=== PATIENT | female | born 1945 | race Caucasian/White ===

== ENCOUNTER 2016-11-16 19:59 | Emergency (ER) | payer MEDICARE, MEDICAID ==
[~2016-11-16] VITALS: Ht 165.1 cm; Wt 99.8 kg
[~2016-11-16 19:59] MED LIST: BENA40TA2 PO; CARV25TA2 PO; CYCL30DR OP; FENO134C PO; INSU100V7 SQ; LEVO150T PO; MECL-118 PO; OMEP20CA10 PO; SOLI5TAB PO
--- NOTE | 2016-11-16 20:07 | NUR ---
PT BB FAMILY; PT AMBULATORY TO ER BED 6 C/O ABD PAIN X 1 DAY. PT AOX4 NEPALI SPEAKING, DAUGHTER AT BEDSIDE TO TRANSLATE. RR EVEN AND UNLABORED. NO SOB NOTED. NAD NOTED. NO NVD AT THIS TIME. PT GOWNED AND PLACED ON MONITOR WAITING FOR MD SHUKLA.
--- NOTE | 2016-11-16 20:14 | NUR ---
PAC PRUSHA AT BEDSIDE FOR EVAL.
[2016-11-16] MEDS ORDERED: MORPHINE SULFATE INJ 4 MG/ML DISP.SYRIN ONE ×2 (20:26→22:05)
[2016-11-16] MEDS ORDERED: FAMOTIDINE/PF INJ 20 MG/2 ML VIAL IV ONE ×2 (20:26→20:30)
[2016-11-16] MEDS ORDERED: ONDANSETRON HCL/PF 4 MG/2 ML VIAL ONE (20:26)
--- NOTE | 2016-11-16 20:26 | NUR ---
IV STARTED ON LEFT AC 18G. LABS DRAWN AND SENT TO LAB
[2016-11-16] MEDS ORDERED: MORPHINE SULFATE INJ 2 MG/ML DISP.SYRIN IV ONE ×2 (20:30→22:30)
[2016-11-16] MEDS ORDERED: ONDANSETRON HCL/PF 4 MG/2 ML VIAL IVP ONE (20:30)
[2016-11-16 20:44] LABS: CALCIUM, SERUM 8.8 mg/dL (8.5-10.1); POTASSIUM 4.4 mmol/L (3.5-5.1)
[2016-11-16] MEDS ORDERED: IOHEXOL-300 100 ML VIAL IV ONE (20:46)
[2016-11-16] MEDS ORDERED: IV NS 0.9% 250 ML IV ONE (20:46)
[2016-11-16 20:49] LABS: ALBUMIN 3.8 g/dL (3.4-5.0); BILIRUBIN,DIRECT 0.3 mg/dL (0.0-0.2); BILIRUBIN,TOTAL 1.2 mg/dL (0.2-1.0); TOTAL PROTEIN, SERUM 7.2 g/dL (6.4-8.2)
--- NOTE | 2016-11-16 20:55 | NUR ---
PT TO CT VIA W/C
--- NOTE | 2016-11-16 21:06 | NUR ---
PT RETURNED FROM CT.
[2016-11-16 21:12] LABS: BASOPHILS % (AUTO) 0.3 % (0.0-2.0); EOSINOPHILS # (AUTO) 0.1 /CMM (0.0-0.7); EOSINOPHILS % (AUTO) 0.8 % (0.0-6.0); HEMATOCRIT 38 % (33-45); HEMOGLOBIN 12.5 g/dL (11.5-14.8); LYMPHOCYTES # (AUTO) 0.9 /CMM (0.8-4.8); LYMPHOCYTES % (AUTO) 13.8 % (20.0-44.0); MEAN CORPUSCULAR HEMOGLOBIN 28 PG (26.0-33.0); MEAN CORPUSCULAR HGB CONC 33 g/dl (31.0-36.0); MEAN CORPUSCULAR VOLUME 85 fL (82-100); MONOCYTES # (AUTO) 0.5 /CMM (0.1-1.30); MONOCYTES % (AUTO) 7.5 % (2.0-12.0); NEUTROPHILS # (AUTO) 5.2 /CMM (1.8-8.9); NEUTROPHILS % (AUTO) 77.6 % (43.0-81.0); PLATELET COUNT (AUTO) 117 /CMM (150-450); RDW COEFFICIENT OF VARIATION 13.2 (11.5-15.0); WHITE BLOOD COUNT (AUTO) 6.7 K/uL (4.3-11.0)
--- NOTE | 2016-11-16 21:41 | NUR ---
URINE COLLECTED. SENT TO LAB
[2016-11-16 22:01] LABS: APPEARANCE,URINE CLEAR (CLEAR); BILIRUBIN,URINE NEGATIVE (NEGATIVE); BLOOD, URINE NEGATIVE Ery/uL (NEGATIVE); COLOR,URINE YELLOW (YELLOW); KETONES,URINE NEGATIVE (NEGATIVE); LEUKOCYTE ESTERASE ,URINE NEGATIVE (NEGATIVE); NITRITE, URINE NEGATIVE (NEGATIVE); PROTEIN,URINE NEGATIVE (NEGATIVE); UGLUCOSE NEGATIVE (NEGATIVE); UROBILINOGEN,URINE 0.2 EU/dL (0.2)
--- NOTE | 2016-11-16 22:13 | NUR ---
VERBAL ORDERS PER PAC PRUSHA TO GIVE PT MORPHINE 4MG IVP ONE TIME NOW. PT MEDICATED ORDERED.
--- NOTE | 2016-11-16 23:12 | NUR ---
CALLED RADIOLOGY FOR CT RESULT F/U.
[2016-11-17 00:46] LABS: INR 0.95 (0.87-1.13); PROTHROMBIN TIME 10.1 SECS (9.5-12.7)
--- NOTE | 2016-11-17 00:58 | NUR ---
DR. RAZO AT BEDSIDE SPEAKING TO PT AND FAMILY REGARDING RESULTS
--- NOTE | 2016-11-17 01:00 | NUR ---
IV removed. Catheter intact and site benign. Pressure and 4x4 applied to site. No bleeding noted. Patient discharged to home in stable condition. Written and verbal after care instructions given. Patient verbalizes understanding of instruction. ambulatory with a steady gait. instructed not to drive. pt verbalize understanding. pt accompanied by daughter.
[2016-11-17 01:02] VITALS: BP 122/88
== END 2016-11-17 01:13 | disposition home or self-care (01) ==
LOC: ER 19:59
DX: R10.84 Generalized abdominal pain (principal); K21.9 Gastro-esophageal reflux disease without esophagitis; I10 Essential (primary) hypertension; E11.9 Type 2 diabetes mellitus without complications; M19.90 Unspecified osteoarthritis, unspecified site; F41.9 Anxiety disorder, unspecified; E78.00 Pure hypercholesterolemia, unspecified; Z79.4 Long term (current) use of insulin
CPT/HCPCS: 36415; 74160; 80048; 80076; 81001; 83690; 85025; 85610; 93005; 96374; 96375; 96376; 99285; A4606; J2270 ×2; J2405; J3490; J7050; Q9967; 81000-TC; Z7610

== ENCOUNTER 2017-01-22 19:36 | Emergency (ER) | payer MEDICARE, MEDICAID ==
[~2017-01-22] VITALS: Ht 167.6 cm; Wt 72.6 kg
[2017-01-22 19:40] VITALS: BP 143/80
--- NOTE | 2017-01-22 20:34 | NUR ---
LEFT BEFORE DISCHARGE BY THE PROVIDER
== END 2017-01-22 20:35 | disposition left against medical advice (07) ==
LOC: ER 19:37
DX: L98.8 Other specified disorders of the skin and subcutaneous tissue (principal); E11.9 Type 2 diabetes mellitus without complications; E78.00 Pure hypercholesterolemia, unspecified; I10 Essential (primary) hypertension; K21.9 Gastro-esophageal reflux disease without esophagitis; Z79.4 Long term (current) use of insulin
CPT/HCPCS: 99281; A4606; Z7502; Z7610

== ENCOUNTER 2017-08-31 15:03 | Inpatient (IN) | payer MEDICARE, MEDICAID ==
[~2017-08-31] VITALS: Ht 162.6 cm; Wt 91.6 kg
[~2017-08-31 15:03] MED LIST changes: -BENA40TA2 PO; +BENA40TA8 PO; -SOLI5TAB PO; +SOLI5TAB2 PO
--- NOTE | 2017-08-31 15:20 | NUR ---
PT CAME IN WITH C/O ABDOMINAL PAIN X 3 DAYS, NAUSEA. SEEN BY MD FOR EVAL. VSS. SAFETY AND COMFORT MEASURES PROBVIDED. WILL MONITOR.
[2017-08-31] MEDS ORDERED: IV NS 0.9% 1,000 ML BAG IV ONE (16:00)
[2017-08-31] MEDS ORDERED: MORPHINE SULFATE INJ 2 MG/ML DISP.SYRIN IV ONE (16:00)
[2017-08-31] MEDS ORDERED: MORPHINE SULFATE INJ 4 MG/ML DISP.SYRIN ONE (16:07)
[2017-08-31 16:10] LABS: APPEARANCE,URINE Clear (CLEAR); BASOPHILS # (AUTO) 0.3 /CMM (0.0-0.2); BASOPHILS % (AUTO) 3.4 % (0.0-2.0); BILIRUBIN,URINE Negative (NEGATIVE); BLOOD, URINE Trace-intact Ery/uL (NEGATIVE); COLOR,URINE Yellow (YELLOW); EOSINOPHILS % (AUTO) 0.6 % (0.0-6.0); HEMATOCRIT 44 % (33-45); HEMOGLOBIN 15.2 g/dL (11.5-14.8); KETONES,URINE Negative (NEGATIVE); LEUKOCYTE ESTERASE ,URINE Negative (NEGATIVE); LYMPHOCYTES # (AUTO) 1.7 /CMM (0.8-4.8); LYMPHOCYTES % (AUTO) 17.1 % (20.0-44.0); MEAN CORPUSCULAR HGB CONC 34 g/dl (31.0-36.0); MEAN CORPUSCULAR VOLUME 86 fL (82-100); MONOCYTES % (AUTO) 9.8 % (2.0-12.0); NEUTROPHILS # (AUTO) 6.9 /CMM (1.8-8.9); NEUTROPHILS % (AUTO) 69.1 % (43.0-81.0); NITRITE, URINE Negative (NEGATIVE); PH,URINE 5.5 (5.0-8.0); PLATELET COUNT (AUTO) 128 /CMM (150-450); PROTEIN,URINE Negative (NEGATIVE); RDW COEFFICIENT OF VARIATION 14.3 (11.5-15.0); RED BLOOD CELL COUNT(AUTO) 5.17 MIL/uL (4.0-5.2); UGLUCOSE Negative (NEGATIVE)
[2017-08-31 16:18] LABS: CALCIUM, SERUM 8.9 mg/dL (8.5-10.1); CARBON DIOXIDE 25 mmol/L (21-32); CHLORIDE 99 mmol/L (98-107); CREATININE 1.2 mg/dL (0.6-1.3); GLUCOSE 246 mg/dL (74-106); POTASSIUM 4.2 mmol/L (3.5-5.1); SODIUM SERUM 132 mmol/L (136-145); UREA NITROGEN, BLOOD 20 mg/dL (7-18)
[2017-08-31] MEDS ORDERED: ONDANSETRON HCL/PF 4 MG/2 ML VIAL ONE ×2 (16:20→18:04)
--- NOTE | 2017-08-31 16:20 | NUR ---
PT NOTED VOMITING- MD AWARE. ORDERS CARRIED OUT. MEDICATED ORDERED.
[2017-08-31] MEDS ORDERED: IV NS 0.9% 250 ML IV ONE (16:24)
[2017-08-31] MEDS ORDERED: IOHEXOL-300 100 ML VIAL IV ONE (16:24)
[2017-08-31 16:25] LABS: BACTERIA,URINE None seen /HPF (None Seen); RBC,URINE 0-2 /HPF (0-2); SQUAMOUS EPITHELIAL CELL,UR Moderate /HPF (None Seen); WBC,URINE 0-2 /HPF (0-3)
[2017-08-31 16:26] LABS: TROPONIN I < 0.017 ng/mL (0.00-0.056)
[2017-08-31] MEDS ORDERED: ONDANSETRON HCL/PF - ER 4 MG/2 ML VIAL IV ONE ×2 (16:30→18:00)
--- NOTE | 2017-08-31 16:30 | NUR ---
PT TAKEN TO CT.
[2017-08-31 16:31] LABS: ALANINE AMINOTRANSFERASE 100 U/L (12-78); ALBUMIN 3.2 g/dL (3.4-5.0); ALKALINE PHOSPHATASE 38 U/L (46-116); ASPARTATE AMINOTRANSFERASE 71 U/L (15-37); BILIRUBIN,TOTAL 2.5 mg/dL (0.2-1.0); LIPASE 103 U/L (73-393); TOTAL PROTEIN, SERUM 7.5 g/dL (6.4-8.2)
--- NOTE | 2017-08-31 18:53 | NUR ---
DR CASTRO ON THE PHONE WITH DR WYLIE
[2017-08-31] MEDS ORDERED: ASPIRIN 325 MG TABLET PO ONE (19:00)
[2017-08-31] MEDS ORDERED: ASPIRIN EC 325 MG TABLET.DR PO ONE (19:03)
[2017-08-31] MEDS ORDERED: CARV12.5 PO (19:25)
[2017-08-31] MEDS ORDERED: OLME1TAB16 PO (19:25)
[2017-08-31] MEDS ORDERED: SITA1TAB6 PO (19:25)
[2017-08-31] MEDS ORDERED: FERR325T24 PO (19:25)
[2017-08-31] MEDS ORDERED: GLIM4TAB2 PO (19:25)
--- NOTE | 2017-08-31 19:50 | NUR ---
PATIENT ASSIGNED TO TELE 308-[address] WYLIE
--- NOTE | 2017-08-31 19:57 | NUR ---
REPORT GIVEN TO VIVIEN RIVERS FOR SAL.
--- NOTE | 2017-08-31 20:12 | NUR ---
TRANSFERRED PATIENT TO TELE FLOOR VIA ALS PROTOCOL, FAMILY AND RN VIVIEN AT BEDSIDE. NO FURTHER COMPLAINTS.
[2017-08-31 20:15] VITALS: BP 102/61
--- NOTE | 2017-08-31 20:30 | NUR ---
ADMITTED A 72Y/O F, [place], [place], [place] CITIZEN SPEAKING WITHIN FAMILY AT THE BED SIDE. BREATHING EVENLY. NO SOB. NAD . STILL W. EPISODES OF N/V AND C/O ABD PAIN. ALL MEDICAL INFORMATION WAS OBTAINED FROM THE PT AND THE FAMILY. VSS. AFEBRILE. ASSISTED PT TO THE BATHROOM. NEEDS ATTENDED . BED LOW LOCKED .CALL LIGHT WITHIN REACH. WILL CONT TO MONITOR AND WILL INFORM DR. WYLIE RE, ADMISSION ORDERS.
[2017-08-31] MEDS ORDERED: DEXTROSE 50%-WATER 50 ML DISP.SYRIN IV PRN (21:30)
[2017-08-31] MEDS ORDERED: HYDROCHLOROTHIAZIDE XX ONE (21:30)
[2017-08-31] MEDS ORDERED: NITROGLYCERIN 0.4 MG/TAB BOTTLE SL PRN (21:30)
[2017-08-31] MEDS ORDERED: MORPHINE SULFATE INJ 2 MG/ML DISP.SYRIN IV PRN (21:30)
[2017-08-31] MEDS ORDERED: OLMESARTAN XX ONE (21:30)
[2017-08-31] MEDS ORDERED: ACETAMINOPHEN 325 MG TABLET PO PRN (21:30)
[2017-08-31] MEDS ORDERED: MISCELLANEOUS MED 1 EA EA XX ONE (21:30)
[2017-08-31] MEDS ORDERED: ONDANSETRON HCL/PF 4 MG/2 ML VIAL IV PRN (21:30)
--- NOTE | 2017-08-31 21:30 | NUR ---
CALLED DR. WYLIE AND OBTAINED ADMISSION ORDERS. HOME MEDS WERE REVIEWED WITH THE DR. Asia WYNN.
[2017-08-31] MEDS: ATORVASTATIN 10 MG TABLET PO SCH (22:08)
[2017-08-31] MEDS: BLOOD SUGAR DIAGNOSTIC 1 EACH STRIP IN SCH (22:08)
[2017-08-31] MEDS: ENOXAPARIN SODIUM 40 MG/0.4 ML DISP.SYRIN SQ SCH (22:09)
[2017-08-31] MEDS: PANTOPRAZOLE 40 MG VIAL IV SCH (22:10)
[2017-08-31] MEDS: INSULIN REGULAR, HUMAN 100 UNIT/ML 3 ML VIAL SQ PRN (22:12)
[2017-08-31] MEDS ORDERED: INSULIN REGULAR, HUMAN 100 UNIT/ML 3 ML VIAL ONE (22:22)
[2017-09-01] VITALS (7 sets, daily range): BP systolic 96–142; BP diastolic 56–77
--- NOTE | 2017-09-01 06:49 | NUR ---
RN NOTE; PT IN BED AWAKE AND ALERT. BREATHING EVENLY. NO SOB.NAD. SR ON HEART MONITOR , REMAINED STABLE W/ NO ACUTE EVENT DURING THE NIGHT, NO C/O PAIN OR DISCOMFORT. NO N/V. WITH 4 EPISODES OF DIARRHEA DURING THE NIGHT. PT WAS INSTRUCTED RE STOOL SAMPLE COLLECTION. NEEDS ATTENDED . BED LOW LOCKED. CALL LIGHT WITHIN REACH . WILL CONT TO MONITOR AND WILL ENDORSE TO AM SHIFT FOR SAL.
[2017-09-01] MEDS: BLOOD SUGAR DIAGNOSTIC 1 EACH STRIP IN SCH ×4 (06:57→21:45)
--- NOTE | 2017-09-01 07:05 | NUR ---
REPORT RECEIVED AT THE BEDSIDE. PATIENT IS RESTING COMFORTABLY IN BED. NO SOB OR DISTRESS NOTED AT THIS TIME. PATIENT DENIES PAIN AT THIS TIME. HEART RATE SR IN THE 70'S. PT NPO FOR NOW. BED IN A LOW POSITION, CALL LIGHT WITHIN PATIENT REACH. WILL CONTINUE TO MONITOR.
--- NOTE | 2017-09-01 07:33 | NUR ---
placed a call to Dr. Peguero for cardio consult. Dr. Ralph is covering him. also left a message for Dr. Villagomez. for GI consult. Candie, day shift RN made aware.
[2017-09-01] MEDS: LINAGLIPTIN 5 MG TABLET PO SCH ×2 (08:25→08:28)
[2017-09-01] MEDS: METFORMIN 500 MG TABLET PO SCH ×2 (08:25→08:28)
[2017-09-01] MEDS ORDERED: CARVEDILOL 6.25 MG TABLET PO SCH (09:00)
--- NOTE | 2017-09-01 11:48 | NUR ---
DR GRANT ON FLOOR. ASKS TO ORDER FLAGYL 500MG IV Q8H. STATES PT HAD HPYLORI TWO WEEKS AGO AND WAS TREATED WITH ABX. STATES HER CONDITION MAY BE RELATED TO THIS.
[2017-09-01] MEDS: INSULIN REGULAR, HUMAN 100 UNIT/ML 3 ML VIAL SQ PRN ×2 (11:52→17:12)
--- NOTE | 2017-09-01 11:52 | NUR ---
PT BLOOD SUGAR IS 148. PT IS REFUSING INSULIN SHE STATES SHE IS NOT HUNGRY AND WILL NOT BE EATING.
--- NOTE | 2017-09-01 13:05 | NUR ---
WAS ABLE TO SEND REQUEST FOR MEDICAL RECORDS TO [facility]. HAVE NOT BEEN ABLE TO REACH ANYONE FOR PATIENT'S PRIMARY MD, DR ROLANDO GONZALEZ. WAITING FOR RECORD REPORTS.
--- NOTE | 2017-09-01 13:11 | NUR ---
CALLED DR GONZALEZ'S OFFICE, PRIMARY MD, AGAIN AND WAS ABLE TO SPEAK WITH THE DOCTOR. GAVE THE MD THE FAX FOR THE FLOOR AND MD STATES HE WILL SEND RESULTS OF THE PATIENT'S MOST RECENT TESTS.
[2017-09-01] MEDS: METRONIDAZOLE 500MG/ NS 100ML 500 MG in PREMIX 1 EA IV SCH ×2 (14:28→21:41)
[2017-09-01] MEDS: SOD FERRIC GLUC 125 MG in IV NS 0.9% 100 ML IV SCH (15:37)
[2017-09-01] MEDS: CARVEDILOL 6.25 MG TABLET PO SCH (16:02)
--- NOTE | 2017-09-01 16:59 | NUR ---
PT DAUGHTER AT THE BEDSIDE. DAUGHTER MARK BROUGHT A LIST OF THE PATIENT'S CURRENT MEDICATIONS. SHE STATES THE PATIENT NO LONGER TAKES THE BENICAR. WILL TALK TO MD TO DC THE MED.
--- NOTE | 2017-09-01 17:13 | NUR ---
pt again refuses insulin. states she is not going to eat dinner so does not want it.
--- NOTE | 2017-09-01 17:28 | NUR ---
SPOKE TO DR RUEDA. OK TO LIANNA OSUNA PATIENT IS NOT CURRENTLY TAKING THE MEDICATION.
--- NOTE | 2017-09-01 18:34 | NUR ---
NO SIGNIFICANT CHANGES IN PATIENT CONDITION THROUGHOUT THE SHIFT. NO SOB OR DISTRESS NOTED AT THIS TIME. PATIENT REPORTS TOLERABLE PAIN. HEART RATE SR IN THE 80'S WITH PVCS. BED IN A LOW POSITION, CALL LIGHT WITHIN PATIENT REACH. WILL ENDORSE FOR SAL.
--- NOTE | 2017-09-01 19:10 | NUR ---
TELE/RN NOTES RECEIVED PT. SITTING UP IN BED. AWAKE, ALERT AND ORIENTED X3. BREATHING EVEN AND UNLABORED ON 2LPM O2 VIA NC. NO SOB, RESPIRATORY DISTRESS OR COMPLAINTS OF PAIN NOTED AT THIS TIME. NO COMPLAINTS OF CHEST PAIN NOTED AT THIS TIME. PT. WITH EXTERNAL SUPPLY CHAIN INTERN PRESENT AND INTACT. CURRENT RHYTHM = SINUS RHYTHM HR 81. PT. WITH RIGHT HAND 20 GAUGE IV SALINE LOCK PRESENT, PATENT AND INTACT. PT. WITH FAMILY MEMBERS PRESENT AT BEDSIDE. BED LOCKED AND IN LOWEST POSITION, SIDE RAILS UP X2, BED ALARM ON, CALL LIGHT WITHIN REACH, WILL CONTINUE TO MONITOR.
[2017-09-01] MEDS: PANTOPRAZOLE 40 MG VIAL IV SCH (21:41)
[2017-09-01] MEDS: ATORVASTATIN 10 MG TABLET PO SCH (21:41)
--- NOTE | 2017-09-01 21:45 | NUR ---
TELE/RN NOTES PT. BLOOD SUGAR = 175 MG/DL. PT. REFUSING INSULIN COVERAGE AT THIS TIME. NO S/S OF HYPO/HYPERGLYCEMIA NOTED AT THIS TIME. EDUCATED PT. ON IMPORTANCE OF CONTROLLING BLOOD SUGAR WITH INSULIN. PT. VERBALIZED UNDERSTANDING AND STATED IT WILL BE LOWER IN THE MORNING AND CONTINUES TO REFUSE INSULIN COVERAGE AT THIS TIME. WILL CONTINUE TO MONITOR.
[2017-09-01] MEDS: ENOXAPARIN SODIUM 40 MG/0.4 ML DISP.SYRIN SQ SCH (21:46)
[2017-09-02 04:00] VITALS: BP 137/57
[2017-09-02] MEDS: METRONIDAZOLE 500MG/ NS 100ML 500 MG in PREMIX 1 EA IV SCH ×3 (05:25→21:06)
--- NOTE | 2017-09-02 06:14 | NUR ---
TELE/RN NOTES PT. IS LYING IN BED RESTING. BREATHING EVEN AND UNLABORED ON 2LPM O2 VIA NC. NO SOB, RESPIRATORY DISTRESS OR COMPLAINTS OF PAIN NOTED AT THIS TIME. NO COMPLAINTS OF CHEST PAIN NOTED AT THIS TIME AND THROUGHOUT SHIFT. PT. WITH EXTERNAL SOLAR ENERGY ADVISOR PRESENT AND INTACT. CURRENT RHYTHM = SINUS RHYTHM HR 64. PT. WITH RIGHT HAND 20 GAUGE IV SALINE LOCK PRESENT, PATENT AND INTACT. ALL PT. NEEDS MET. BED LOCKED AND IN LOWEST POSITION, SIDE RAILS UP X2, BED ALARM ON, CALL LIGHT WITHIN REACH, WILL ENDORSE TO DAYSHIFT NURSE FOR CONTINUITY OF CARE.
[2017-09-02] MEDS: BLOOD SUGAR DIAGNOSTIC 1 EACH STRIP IN SCH ×4 (06:42→21:18)
--- NOTE | 2017-09-02 07:25 | NUR ---
RN NOTES RECEIVED PATIENT AWAKE ALERT AND VERBALLY RESPONSIVE, [place] SPEAKING ABLE TO MAKE NEEDS KNOWN. RESPIRATIONS EVEN AND UNLABORED, CONTINUED ON PAIN MANAGEMENT ORDERED, DENIES PAIN AT THIS TIME. IV ACCESS TO RIGHT HAND NO REDNESS OR INFILTRATION NOTED. , KEPT CLEAN DRY AND COMFORTABLE, SAFETY MEASURES IN PLACE, WILL CONTINUE TO MONITOR.
[2017-09-02 08:00] VITALS: BP 123/64
[2017-09-02] MEDS: METFORMIN 500 MG TABLET PO SCH (09:00)
[2017-09-02] MEDS: CARVEDILOL 6.25 MG TABLET PO SCH ×2 (09:05→16:32)
[2017-09-02] MEDS: LINAGLIPTIN 5 MG TABLET PO SCH (09:07)
[2017-09-02 09:50] VITALS: BP 123/64
[2017-09-02 10:33] LABS: BASOPHILS % (AUTO) 0.3 % (0.0-2.0); EOSINOPHILS % (AUTO) 3.4 % (0.0-6.0); HEMATOCRIT 34 % (33-45); HEMOGLOBIN 11.8 g/dL (11.5-14.8); LYMPHOCYTES % (AUTO) 22.7 % (20.0-44.0); MEAN CORPUSCULAR HGB CONC 34 g/dl (31.0-36.0); MEAN CORPUSCULAR VOLUME 86 fL (82-100); MONOCYTES # (AUTO) 0.3 /CMM (0.1-1.30); NEUTROPHILS # (AUTO) 2.8 /CMM (1.8-8.9); NEUTROPHILS % (AUTO) 65.6 % (43.0-81.0); PLATELET COUNT (AUTO) 125 /CMM (150-450); RDW COEFFICIENT OF VARIATION 14.8 (11.5-15.0); RED BLOOD CELL COUNT(AUTO) 3.97 MIL/uL (4.0-5.2); WHITE BLOOD COUNT (AUTO) 4.3 K/uL (4.3-11.0)
[2017-09-02 10:49] LABS: CALCIUM, SERUM 8.3 mg/dL (8.5-10.1); CREATININE 1.1 mg/dL (0.6-1.3); POTASSIUM 4.8 mmol/L (3.5-5.1)
[2017-09-02 10:56] LABS: BILIRUBIN,TOTAL 0.9 mg/dL (0.2-1.0); TOTAL PROTEIN, SERUM 6.6 g/dL (6.4-8.2)
[2017-09-02] MEDS: INSULIN REGULAR, HUMAN 100 UNIT/ML 3 ML VIAL SQ PRN ×2 (11:57→17:05)
[2017-09-02] MEDS: SOD FERRIC GLUC 125 MG in IV NS 0.9% 100 ML IV SCH (14:24)
[2017-09-02 16:00] VITALS: BP 119/52
--- NOTE | 2017-09-02 18:36 | NUR ---
RN NOTES PT WITH FORMED STOOL , NO STOOL COLLECTED PER PROTOCOL
--- NOTE | 2017-09-02 19:35 | NUR ---
MS/RN NOTES RECEIVED PT. SITTING UP IN BED. AWAKE, ALERT AND ORIENTED X3. BREATHING EVEN AND UNLABORED ON ROOM AIR. NO SOB, RESPIRATORY DISTRESS OR COMPLAINTS OF PAIN NOTED AT THIS TIME. PT. WITH RIGHT FOREARM 22 GAUGE IV SALINE LOCK PRESENT, PATENT AND INTACT. PT. WITH FAMILY MEMBER PRESENT AT BEDSIDE. BED LOCKED AND IN LOWEST POSITION, SIDE RAILS UP X2, BED ALARM ON, CALL LIGHT WITHIN REACH, WILL CONTINUE TO MONITOR.
--- NOTE | 2017-09-02 19:37 | NUR ---
RN NOTES PATIENT AWAKE ALERT AND VERBALLY RESPONSIVE, [place] SPEAKING ABLE TO MAKE NEEDS KNOWN. RESPIRATIONS EVEN AND UNLABORED, CONTINUED ON PAIN MANAGEMENT ORDERED, DENIES PAIN AT THIS TIME. IV ACCESS TO RIGHT FOREARM NO REDNESS OR INFILTRATION NOTED. , KEPT CLEAN DRY AND COMFORTABLE, SAFETY MEASURES IN PLACE, ENDORSED TO NEXT SHIFT FOR CONTINUITY OF CARE.
[2017-09-02 20:00] VITALS: BP 140/60
[2017-09-02] MEDS: PANTOPRAZOLE 40 MG VIAL IV SCH (21:06)
[2017-09-02] MEDS: ATORVASTATIN 10 MG TABLET PO SCH (21:06)
[2017-09-02] MEDS: ENOXAPARIN SODIUM 40 MG/0.4 ML DISP.SYRIN SQ SCH (21:07)
--- NOTE | 2017-09-02 21:19 | NUR ---
MS/RN NOTES PT. BLOOD SUGAR IS 153 MG/DL. NO S/S OF HYPO/HYPERGLYCEMIA NOTED AT THIS TIME. PT. REFUSING INSULIN COVERAGE. EDUCATED PT. ON IMPORTANCE OF CONTROLLING BLOOD SUGAR PT. VERBALIZED UNDERSTANDING STATES THAT HER BLOOD SUGAR WILL GO DOWN IN THE MORNING AND CONTINUES TO REFUSE. WILL CONTINUE TO MONITOR.
[2017-09-03] MEDS: METRONIDAZOLE 500MG/ NS 100ML 500 MG in PREMIX 1 EA IV SCH ×3 (05:35→20:55)
--- NOTE | 2017-09-03 06:35 | NUR ---
MS/RN NOTES PT. IS LYING IN BED RESTING. BREATHING EVEN AND UNLABORED ON ROOM AIR. NO SOB, RESPIRATORY DISTRESS OR COMPLAINTS OF PAIN NOTED AT THIS TIME. PT. WITH RIGHT FOREARM 22 GAUGE IV SALINE LOCK PRESENT, PATENT AND INTACT. ALL PT. NEEDS MET. BED LOCKED AND IN LOWEST POSITION, SIDE RAILS UP X2, BED ALARM ON, CALL LIGHT WITHIN REACH, WILL ENDORSE TO DAYSHIFT NURSE FOR CONTINUITY OF CARE.
[2017-09-03] MEDS: BLOOD SUGAR DIAGNOSTIC 1 EACH STRIP IN SCH ×4 (06:49→21:49)
[2017-09-03] MEDS: LINAGLIPTIN 5 MG TABLET PO SCH (08:08)
[2017-09-03] MEDS: METFORMIN 500 MG TABLET PO SCH (08:08)
[2017-09-03] MEDS: CARVEDILOL 6.25 MG TABLET PO SCH ×2 (08:08→16:57)
[2017-09-03 08:17] VITALS: BP 139/69
[2017-09-03] MEDS: POLYETHYLENE GLYCOL 3350 17 GM POWD.PACK PO SCH ×2 (09:00→21:50)
[2017-09-03] MEDS ORDERED: NA PHOS,M-B/NA PHOS,DI-BA 1 EA ENEMA RC ONE (09:00)
[2017-09-03] MEDS: DOCUSATE SODIUM 100 MG CAPSULE PO SCH ×2 (09:41→16:57)
--- NOTE | 2017-09-03 09:41 | NUR ---
HELD FLEET ENEMA AND MIRALAX DUE TO PT HAVING TWO BOWL MOVEMENTS IN THE AM. PT STATED BOWL IS SLIGHTLY HARD BUT ABLE TO HAVE A BOWL MOVEMENT. NO DISCOMFORT NOTED. MIRALAX SCHEDULED FOR HS WELL. IF NEEDED WILL ADMIN AT NIGHT.
--- NOTE | 2017-09-03 10:29 | NUR ---
NO ABLE TO COLLECT STOOL FOR D.DIFF DUE TO STOOL BEING FORMED. PT HAD 2X BOWL MOVEMENT IN AM. NO DIARRHEA NOTED.
[2017-09-03] MEDS: INSULIN REGULAR, HUMAN 100 UNIT/ML 3 ML VIAL SQ PRN (12:18)
[2017-09-03] MEDS: SOD FERRIC GLUC 125 MG in IV NS 0.9% 100 ML IV SCH (14:21)
[2017-09-03 16:00] VITALS: BP 128/65
--- NOTE | 2017-09-03 18:34 | NUR ---
MS RN: CLOSING NOTE PT TOOK ALL MEDICATION ON TIME. NO ADVERSE REACTIONS NOTED. NO SOB NOTED. NO PAIN NOTED. NO DISTRESS NOTED. A/OX3. [place]CIAN SPEAKING. CONTINENT. BRP WITH UT ASSIST.STEADY GATE. SKIN INTACT. R FA #2 HL. SITE CLEAR AND PATENT. NO REDNESS OR BLEEDING NOTED. INSULIN COVERED PER SLIDING SCALE. WAS UNABLE TO COLLECT STOOL DUE TO FORMED 3 BOWL MOVEMENTS. RESTING COMFORTABLY IN BED. CALL LIGHT WITHIN REACH.
[2017-09-03 20:00] VITALS: BP 147/72
--- NOTE | 2017-09-03 20:12 | NUR ---
RN NOTES PATIENT AWAKE ALERT AND VERBALLY RESPONSIVE, [place] SPEAKING ABLE TO MAKE NEEDS KNOWN. RESPIRATIONS EVEN AND UNLABORED, DENIES PAIN AT THIS TIME. IV ACCESS TO RIGHT FOREARM NO REDNESS OR INFILTRATION NOTED. , KEPT CLEAN DRY AND COMFORTABLE, SAFETY MEASURES IN PLACE, ENDORSED TO NEXT SHIFT FOR CONTINUITY OF CARE.
[2017-09-03] MEDS: PANTOPRAZOLE 40 MG VIAL IV SCH (21:49)
[2017-09-03] MEDS: ATORVASTATIN 10 MG TABLET PO SCH (21:49)
[2017-09-03] MEDS: ENOXAPARIN SODIUM 40 MG/0.4 ML DISP.SYRIN SQ SCH (21:50)
--- NOTE | 2017-09-03 21:54 | NUR ---
RN NOTES PT. REFUSED LOVENEX 40 MG , ENCOURAGED X3 STILL REFUSED , ENCOURAGED X3 STILL REFUSED , WILL CONTINUE TO ENCOURAGED TO COMPLY WITH MD REGIMEN FOR MD REGIMEN.
--- NOTE | 2017-09-03 22:00 | NUR ---
RN NOTES HELD MIRALAX DUE TO PT HAVING TWO BOWL MOVEMENTS . PT STATED I DON'T WANTED BECAUSE I ABLE TO HAVE A BOWL MOVEMENT.DENIES ANY DISCOMFORT , NO DISCOMFORT NOTED.
[2017-09-04] MEDS: METRONIDAZOLE 500MG/ NS 100ML 500 MG in PREMIX 1 EA IV SCH (04:40)
[2017-09-04 06:34] LABS: BASOPHILS % (AUTO) 0.7 % (0.0-2.0); EOSINOPHILS % (AUTO) 2.3 % (0.0-6.0); HEMATOCRIT 32 % (33-45); LYMPHOCYTES # (AUTO) 0.8 /CMM (0.8-4.8); LYMPHOCYTES % (AUTO) 32.8 % (20.0-44.0); MEAN CORPUSCULAR HGB CONC 35 g/dl (31.0-36.0); MEAN CORPUSCULAR VOLUME 86 fL (82-100); MONOCYTES # (AUTO) 0.3 /CMM (0.1-1.30); MONOCYTES % (AUTO) 11.2 % (2.0-12.0); NEUTROPHILS # (AUTO) 1.3 /CMM (1.8-8.9); PLATELET COUNT (AUTO) 106 /CMM (150-450); RDW COEFFICIENT OF VARIATION 14.8 (11.5-15.0); RED BLOOD CELL COUNT(AUTO) 3.65 MIL/uL (4.0-5.2); WHITE BLOOD COUNT (AUTO) 2.4 K/uL (4.3-11.0)
[2017-09-04 06:47] LABS: ALBUMIN 2.9 g/dL (3.4-5.0); BILIRUBIN,TOTAL 0.6 mg/dL (0.2-1.0); CALCIUM, SERUM 8.3 mg/dL (8.5-10.1); CREATININE 0.9 mg/dL (0.6-1.3); TOTAL PROTEIN, SERUM 6.1 g/dL (6.4-8.2)
[2017-09-04] MEDS: BLOOD SUGAR DIAGNOSTIC 1 EACH STRIP IN SCH (06:47)
--- NOTE | 2017-09-04 07:31 | NUR ---
MS RN: INITIAL NOTE RECEIVED PT A/OX3. POLISH SPEAKING. MS. CONTINENT. BRP WITH OUT ASSIST. SKIN INTACT. R FA #22 HL. NO IV FLUID RUNNING. NO DISTRESS NOTED. NO SOB NOTED. NO PAIN NOTED. RESTING COMFORTABLY IN BED. CALL LIGHT WITHIN REACH.
[2017-09-04 07:59] VITALS: BP 156/69
[2017-09-04 08:06] VITALS: BP 159/69
[2017-09-04] MEDS: CARVEDILOL 6.25 MG TABLET PO SCH (08:06)
[2017-09-04] MEDS: DOCUSATE SODIUM 100 MG CAPSULE PO SCH (08:06)
[2017-09-04] MEDS: LINAGLIPTIN 5 MG TABLET PO SCH (08:06)
[2017-09-04] MEDS: METFORMIN 500 MG TABLET PO SCH (08:06)
[2017-09-04] MEDS ORDERED: POLY17PO4 PO (08:51)
[2017-09-04] MEDS ORDERED: Blood Sugar Diagnostic IN (08:51)
[2017-09-04] MEDS ORDERED: DOCU-141 PO (08:51)
[2017-09-04] MEDS ORDERED: PANT40VI PO (08:51)
[2017-09-04] MEDS ORDERED: METF-440 PO (08:51)
[2017-09-04] MEDS ORDERED: LINA5TAB PO (08:51)
[2017-09-04] MEDS ORDERED: CARV6.252 PO (08:51)
[2017-09-04] MEDS ORDERED: GLIM4TAB2 PO (09:04)
[2017-09-04] MEDS ORDERED: OLME1TAB16 PO (09:04)
[2017-09-04 10:15] LABS: EOSINOPHILS % (MANUAL) 1 % (0-4); LYMPHOCYTES % (MANUAL) 33 % (16-48); MONOCYTES % (MANUAL) 10 % (0-11.0); NEUTROPHILS % (MANUAL) 56 (42-76)
--- NOTE | 2017-09-04 11:18 | NUR ---
MS RN: DISCHARGE NOTE PT A/D HOME WITH SELF CARE. LIVES WITH DAUGHTER MARK. A/OX3. NO DISTRESS NOTED. NO SOB NOTED. TOOK ALL MORNING MEDICATION ON TIME. NO ADVERSE REACTIONS NOTED. AMBULATES WITH OUT ASSIST. BRP. SKIN INTACT. R FA #22 IV D/C. SITE CLEAR AND PATENT. NO REDNESS OR BLEEDING NOTED. ALL DISCHARGE INFORMATION PROVIDED TO PT AND MARK DAUGHTER. ALL INFORMATION SIGNED BY PATIENT AND COPIES PROVIDED. ALL BELONGINGS ACCOUNTED FOR. LEFT VIA PRIVATE CAR AMBULATORY WITH DAUGHTER.
== END 2017-09-04 11:20 | disposition home or self-care (01) | DRG 389 ==
LOC: ER 15:06 → TELE 19:53 → MED 09-02 15:10
PROVIDERS: ADMIT Family Medicine; ATTEND Family Medicine
DX: K56.7 Ileus, unspecified (principal); E87.1 Hypo-osmolality and hyponatremia; D69.6 Thrombocytopenia, unspecified; R13.10 Dysphagia, unspecified; E86.9 Volume depletion, unspecified; D64.9 Anemia, unspecified; K57.92 Diverticulitis of intestine, part unspecified, without perforation or abscess without bleeding; I70.0 Atherosclerosis of aorta; K29.70 Gastritis, unspecified, without bleeding; R32 Unspecified urinary incontinence; R07.9 Chest pain, unspecified; I25.10 Atherosclerotic heart disease of native coronary artery without angina pectoris; K75.81 Nonalcoholic steatohepatitis (NASH); E11.9 Type 2 diabetes mellitus without complications; E03.9 Hypothyroidism, unspecified; E78.5 Hyperlipidemia, unspecified; I10 Essential (primary) hypertension; K74.60 Unspecified cirrhosis of liver; R19.7 Diarrhea, unspecified; K21.9 Gastro-esophageal reflux disease without esophagitis; Z90.49 Acquired absence of other specified parts of digestive tract; Z86.73 Personal history of transient ischemic attack (TIA), and cerebral infarction without residual deficits; Z79.899 Other long term (current) drug therapy; Z82.49 Family history of ischemic heart disease and other diseases of the circulatory system; M81.0 Age-related osteoporosis without current pathological fracture; M19.90 Unspecified osteoarthritis, unspecified site; F41.9 Anxiety disorder, unspecified; R41.3 Other amnesia
CPT/HCPCS: 36415; 80048-TC; 80053-TC; 80061-TC; 80074; 80076-TC; 81000-TC; 82140-TC; 82150-TC; 82962-TC; 83605-TC; 83690-TC; 84443-TC; 84484-TC; 85025-TC; 87081-TC; 93307-TC; A4216; A4606; C9113; J1650; J1815; J2270; J2405; J2916; J3490; J7030; J7050; Q9967; Z7610

== ENCOUNTER 2019-09-21 17:59 | Inpatient (IN) | payer MEDICARE, OTHER ==
[~2019-09-21] VITALS: Ht 162.6 cm; Wt 89.4 kg
[~2019-09-21 17:59] MED LIST changes: -BENA40TA8 PO; +Blood Sugar Diagnostic IN; +CARV12.5 PO; -CARV25TA2 PO; +CARV6.252 PO; -CYCL30DR OP; +DOCU-141 PO; -FENO134C PO; +FERR325T24 PO; +GLIM4TAB37 PO; -INSU100V7 SQ; -LEVO150T PO; +LINA5TAB PO; -MECL-118 PO; +METF-440 PO; +OLME1TAB16 PO; -OMEP20CA10 PO; +PANT40VI PO; +POLY17PO4 PO; +SITA1TAB6 PO; -SOLI5TAB2 PO
--- NOTE | 2019-09-21 18:16 | NUR ---
EPIGASTRIC PAIN WITH NAUSEA AND VOMITING X 3 DAYS; pt to bed 7, awake ,alert, -sob, nad noted, vss, pending md lyons
[2019-09-21] MEDS ORDERED: ONDANSETRON HCL/PF 4 MG/2 ML VIAL ONE (18:40)
[2019-09-21 18:52] LABS: BASOPHILS % (AUTO) 0.5 % (0.0-2.0); EOSINOPHILS % (AUTO) 1.1 % (0.0-6.0); HEMATOCRIT 37 % (33-45); HEMOGLOBIN 12.3 g/dL (11.5-14.8); LYMPHOCYTES # (AUTO) 0.8 /CMM (0.8-4.8); LYMPHOCYTES % (AUTO) 13.6 % (20.0-44.0); MEAN CORPUSCULAR HGB CONC 34 g/dl (31.0-36.0); MEAN CORPUSCULAR VOLUME 87 fL (82-100); MONOCYTES # (AUTO) 0.5 /CMM (0.1-1.30); MONOCYTES % (AUTO) 7.8 % (2.0-12.0); NEUTROPHILS # (AUTO) 4.6 /CMM (1.8-8.9); PLATELET COUNT (AUTO) 150 /CMM (150-450); RED BLOOD CELL COUNT(AUTO) 4.23 MIL/uL (4.0-5.2)
[2019-09-21] MEDS ORDERED: ONDANSETRON HCL/PF - ER 4 MG/2 ML VIAL IV ONE (19:00)
[2019-09-21 19:03] LABS: CALCIUM, SERUM 9.3 mg/dL (8.5-10.1); CREATININE 1.3 mg/dL (0.6-1.3); POTASSIUM 4.5 mmol/L (3.5-5.1)
[2019-09-21 19:05] LABS: APPEARANCE,URINE Clear (CLEAR); BILIRUBIN,URINE Negative (NEGATIVE); BLOOD, URINE Negative Ery/uL (NEGATIVE); COLOR,URINE Yellow (YELLOW); KETONES,URINE Negative (NEGATIVE); LEUKOCYTE ESTERASE ,URINE Negative (NEGATIVE); NITRITE, URINE Negative (NEGATIVE); PH,URINE 5.5 (5.0-8.0); PROTEIN,URINE Negative (NEGATIVE); UGLUCOSE Negative (NEGATIVE); UROBILINOGEN,URINE 0.2 EU/dL (0.2)
[2019-09-21 19:09] LABS: ALBUMIN 3.5 g/dL (3.4-5.0); BILIRUBIN,DIRECT 0.2 mg/dL (0.0-0.2); BILIRUBIN,TOTAL 0.8 mg/dL (0.2-1.0); TOTAL PROTEIN, SERUM 7.4 g/dL (6.4-8.2)
[2019-09-21] MEDS ORDERED: IV NS 0.9% 1,000 ML BAG IV ONE (20:00)
--- NOTE | 2019-09-21 21:49 | NUR ---
320-[facility], KATHIA HODGE NP
[2019-09-21] MEDS ORDERED: CLON0.1T PO (21:58)
[2019-09-21] MEDS ORDERED: CARV6.252 PO (21:58)
[2019-09-21] MEDS ORDERED: BACL10TA PO (21:58)
[2019-09-21] MEDS ORDERED: LEVO112T2 PO (21:58)
[2019-09-21] MEDS ORDERED: AMLO10TA7 PO (21:58)
--- NOTE | 2019-09-21 22:02 | NUR ---
inpatient hosp kimberli de jesus at bedside
--- NOTE | 2019-09-21 22:28 | NUR ---
report given to darrel dasilva for ambrocio pt will be transported to 3rd floor
[2019-09-21 23:00] VITALS: BP 126/66
--- NOTE | 2019-09-21 23:00 | NUR ---
rn ms admitting opening notes received ptfrom er via wheelchair safely transferred to bed, ambulatory steady, alert and oriented x4, respirations even and unlabored with equal rise and fall of chest, iv site to left ac #20 G intact and patent, no redness, no infiltration present, patient admitted for abd pain at this time has slight discomfort, no pain medication requested.oriented to staff and call light and kept within reach,belongings list done, med recon done, md aware will await ordered, personal medication taken to be given to pharmacy in am vashti horan. pt agree and signed. all needs attended at this time, pt wants to sleep will continue to monitor and attend needs, no nausea or vomitting present
--- NOTE | 2019-09-21 23:11 | NUR ---
pt transported to 3rd floor
[2019-09-21] MEDS ORDERED: POTA10CA43 PO (23:36)
[2019-09-21] MEDS ORDERED: SITA1TAB6 PO (23:36)
[2019-09-21] MEDS ORDERED: OLME1TAB22 PO (23:36)
[2019-09-21] MEDS ORDERED: MEMA10TA PO (23:36)
[2019-09-21] MEDS ORDERED: MECL-159 PO (23:36)
[2019-09-21] MEDS ORDERED: BUME1TAB9 PO (23:36)
[2019-09-21] MEDS ORDERED: LORA-259 PO (23:36)
[2019-09-21] MEDS ORDERED: GLIM4TAB PO (23:36)
[2019-09-21] MEDS ORDERED: IV NS 0.9% 1,000 ML IV PRN (23:45)
[2019-09-22] MEDS ORDERED: BISACODYL SUPP (10 MG) 10 MG/SUPP.RECT SUPP.RECT RC ONE
[2019-09-22] MEDS ORDERED: HYDROCODONE/APAP 10/325MG 1 EA TABLET PO PRN
[2019-09-22] MEDS ORDERED: ENOXAPARIN SODIUM 40 MG/0.4 ML DISP.SYRIN SQ SCH
[2019-09-22] MEDS ORDERED: MAGNESIUM HYDROXIDE 30 ML UDC PO PRN
[2019-09-22] MEDS ORDERED: MAG HYDROX/AL HYDROX/SIMETH 30 ML UDC PO PRN
[2019-09-22] MEDS ORDERED: HYDROCODONE/APAP 5/325MG 1 EACH TABLET PO PRN
[2019-09-22] MEDS ORDERED: ACETAMINOPHEN 325 MG TABLET PO PRN
[2019-09-22] MEDS ORDERED: INSULIN REGULAR, HUMAN 100 UNIT/ML 3 ML VIAL SQ PRN
[2019-09-22] MEDS ORDERED: Z GUARD REMEDY 2 OZ OINT TP PRN
[2019-09-22] MEDS ORDERED: DEXTROSE 50%-WATER 50 ML DISP.SYRIN IV PRN
[2019-09-22] MEDS ORDERED: ONDANSETRON HCL/PF 4 MG/2 ML VIAL IVP PRN
--- NOTE | 2019-09-22 06:36 | NUR ---
rn ms closing notes pt alert and oriented x 3-4 ,ambulatory steady, alert and oriented x4, respirations even and unlabored with equal rise and fall of chest, iv site to left ac #20 G intact and patent, ivf running as ordered, no redness, no infiltration present, slight discomfort noted when using restroom, no pain medication requested. call light kept within reach, personal medication taken to pharmacy in am all needs attended at this time, pt wants to sleep will continue to monitor and attend needs, no nausea or vomiting present will endorse to next shift, no changes noted since admitted to floor.
[2019-09-22] MEDS ORDERED: LEVOTHYROXINE SODIUM 112 MCG TABLET PO SCH (07:00)
[2019-09-22 07:25] LABS: BASOPHILS % (AUTO) 0.5 % (0.0-2.0); EOSINOPHILS % (AUTO) 1.4 % (0.0-6.0); HEMATOCRIT 37 % (33-45); HEMOGLOBIN 12.1 g/dL (11.5-14.8); LYMPHOCYTES # (AUTO) 0.9 /CMM (0.8-4.8); MEAN CORPUSCULAR HGB CONC 33 g/dl (31.0-36.0); MEAN CORPUSCULAR VOLUME 87 fL (82-100); MONOCYTES # (AUTO) 0.3 /CMM (0.1-1.30); MONOCYTES % (AUTO) 7.7 % (2.0-12.0); NEUTROPHILS # (AUTO) 2.9 /CMM (1.8-8.9); NEUTROPHILS % (AUTO) 68.4 % (43.0-81.0); PLATELET COUNT (AUTO) 143 /CMM (150-450); RED BLOOD CELL COUNT(AUTO) 4.17 MIL/uL (4.0-5.2); WHITE BLOOD COUNT (AUTO) 4.2 K/uL (4.3-11.0)
[2019-09-22] MEDS ORDERED: BLOOD SUGAR DIAGNOSTIC 1 EACH STRIP IN SCH (07:30)
[2019-09-22] MEDS ORDERED: DOCU-141 PO (07:31)
[2019-09-22 07:36] LABS: CALCIUM, SERUM 8.8 mg/dL (8.5-10.1); CREATININE 1.1 mg/dL (0.6-1.3); PHOSPHORUS 4.3 mg/dL (2.5-4.9); POTASSIUM 4.4 mmol/L (3.5-5.1)
--- NOTE | 2019-09-22 07:40 | NUR ---
MS/RN OPENING NOTE Patient is resting in bed, A/O x4, showing no signs of acute distress or SOB, stable on RA. IV line in the LAC #20g is clean and intact running NS @ 75ml/hour. Dr. Thakkar and Dr. Saul at the bedside discussing discharge today for the patient. Patient is medically cleared for discharge. Patient is ambulatory and able to verbalize their needs. Bed is in lowest position, side rails x3 in upright position, call light is within reach and patient is aware of how to call for assistance when needed. Will continue with plan of care.
[2019-09-22 07:47] LABS: THYROID STIMULATING HORMONE 0.801 uIU/mL (0.358-3.74)
[2019-09-22 08:00] VITALS: BP 132/63
[2019-09-22 08:25] VITALS: BP 132/63
[2019-09-22] MEDS ORDERED: CARVEDILOL 6.25 MG TABLET PO SCH (09:00)
[2019-09-22] MEDS ORDERED: BACLOFEN (10 MG) 10 MG TABLET PO SCH (09:00)
[2019-09-22] MEDS ORDERED: MEMANTINE HCL 5 MG TABLET PO SCH (09:00)
[2019-09-22] MEDS ORDERED: MECLIZINE HCL 25 MG TABLET PO SCH (09:00)
[2019-09-22] MEDS ORDERED: DOCUSATE SODIUM 100 MG CAPSULE PO SCH (09:00)
[2019-09-22] MEDS ORDERED: FERROUS SULFATE (325 MG) 325 MG/TAB TABLET PO SCH (09:00)
[2019-09-22] MEDS ORDERED: GLIMEPIRIDE 4 MG TABLET PO SCH (09:00)
[2019-09-22] MEDS ORDERED: AMLODIPINE BESYLATE 10 MG TABLET PO SCH (09:00)
--- NOTE | 2019-09-22 11:03 | NUR ---
MS/RN DC NOTE Patient is medically stable for discharge. Cleared by MD. A/O x4, no signs of SOB or acute distress, stable on RA. DC instructions provided and patient verbalized understanding. IV line removed, ID band removed. All belongings with patient and medications were picked up from the pharmacy. AM medications given and 100% of breakfast consumed. Patient refused flu and pneumonia vaccine. Skin assessed and skin remains intact. All patient needs met. Patient left unit ambulatory and was picked up by family member.
[2019-09-22] MEDS ORDERED: POLYETHYLENE GLYCOL 3350 17 GM POWD.PACK PO SCH (22:00)
== END 2019-09-22 10:50 | disposition home or self-care (01) | DRG 391 ==
LOC: ER 18:01 → MED 22:02
PROVIDERS: ADMIT Nurse Practitioner Acute Care; ATTEND Family Medicine
DX: K59.00 Constipation, unspecified (principal); N17.0 Acute kidney failure with tubular necrosis; I31.3 Pericardial effusion (noninflammatory); K76.6 Portal hypertension; K74.60 Unspecified cirrhosis of liver; E11.65 Type 2 diabetes mellitus with hyperglycemia; E03.9 Hypothyroidism, unspecified; E11.9 Type 2 diabetes mellitus without complications; E78.00 Pure hypercholesterolemia, unspecified; E78.5 Hyperlipidemia, unspecified; F41.9 Anxiety disorder, unspecified; K21.9 Gastro-esophageal reflux disease without esophagitis; M81.0 Age-related osteoporosis without current pathological fracture; K29.70 Gastritis, unspecified, without bleeding; I10 Essential (primary) hypertension; L30.9 Dermatitis, unspecified; Z90.49 Acquired absence of other specified parts of digestive tract; Z98.890 Other specified postprocedural states; Z79.84 Long term (current) use of oral hypoglycemic drugs; Z79.890 Hormone replacement therapy; Z79.899 Other long term (current) drug therapy; Z82.49 Family history of ischemic heart disease and other diseases of the circulatory system; E86.0 Dehydration; K64.9 Unspecified hemorrhoids; E86.9 Volume depletion, unspecified; R41.3 Other amnesia
CPT/HCPCS: 36415; 80048-TC; 80061-TC; 80076-TC; 81000-TC; 82962-TC; 83690-TC; 83735-TC; 84100-TC; 84443-TC; 84484-TC; 85025-TC; 87081-TC; 93307-TC; 97116-TC; 97530-TC; G0378; J1650; J1815; J2405; J7030; J8597

== ENCOUNTER 2020-02-03 13:51 | Emergency (ER) | payer MEDICARE, OTHER ==
[~2020-02-03] VITALS: Ht 162.6 cm; Wt 91.6 kg
[~2020-02-03 13:51] MED LIST changes: +AMLO10TA7 PO; +BACL10TA PO; +BUME1TAB9 PO; -Blood Sugar Diagnostic IN; -CARV12.5 PO; +CLON0.1T PO; +GLIM4TAB PO; -GLIM4TAB37 PO; +LEVO112T2 PO; -LINA5TAB PO; +LORA-259 PO; +MECL-159 PO; +MEMA10TA PO; -METF-440 PO; -OLME1TAB16 PO; +OLME1TAB22 PO; -PANT40VI PO; -POLY17PO4 PO; +POTA10CA43 PO
--- NOTE | 2020-02-03 14:10 | NUR ---
WORSENING RLE PAIN X 2 WEEKS. DAUGHTER AT BEDSIDE FOR TRANSLATION. PATIENT AWAKE, ALERT AND ORIENTED X4, BREATHING EVEN AND UNLABORED, NO SOB NOTED. DR. OTERO AT BEDSIDE FOR EVAL.
--- NOTE | 2020-02-03 14:20 | NUR ---
PET CARE ATTENDANT AT BEDSIDE.
--- NOTE | 2020-02-03 14:25 | NUR ---
US TECH AT BEDSIDE
[2020-02-03] MEDS ORDERED: ACETAMINOPHEN ES 500 MG TABLET ONE (14:31)
[2020-02-03] MEDS: ACETAMINOPHEN 325 MG TABLET PO ONE (14:34)
[2020-02-03 15:46] VITALS: BP 146/70
--- NOTE | 2020-02-03 15:46 | NUR ---
Patient ambulatory with steady gait. No distress noted. Patient discharged to home in stable condition. Written and verbal after care instructions given. Patient verbalizes understanding of instruction.
== END 2020-02-03 15:47 | disposition home or self-care (01) ==
LOC: ER 13:52
DX: M17.11 Unilateral primary osteoarthritis, right knee (principal); I10 Essential (primary) hypertension; E11.9 Type 2 diabetes mellitus without complications; E78.5 Hyperlipidemia, unspecified; K21.9 Gastro-esophageal reflux disease without esophagitis; E78.00 Pure hypercholesterolemia, unspecified; Z98.890 Other specified postprocedural states; Z79.899 Other long term (current) drug therapy
CPT/HCPCS: 73564-TC; 73590-TC; 73700-TC; 93971-TC

== ENCOUNTER 2020-04-11 18:23 | Emergency (ER) | payer MEDICARE, OTHER ==
[~2020-04-11] VITALS: Ht 167.6 cm; Wt 88.5 kg
--- NOTE | 2020-04-11 18:46 | NUR ---
PT BIB SELF C/O SOB, 98% O2 SAT ON RA. CITIZEN OF [place] SPEAKING ONLY. VS CHECKED AWAITING MD SHUKLA.
--- NOTE | 2020-04-11 18:47 | NUR ---
MD BY BEDSIDE EVALUATING PT
[2020-04-11 20:06] LABS: CALCIUM, SERUM 8.7 mg/dL (8.5-10.1); CARBON DIOXIDE 29 mmol/L (21-32); CHLORIDE 103 mmol/L (98-107); GLUCOSE 140 mg/dL (74-106); POTASSIUM 4.6 mmol/L (3.5-5.1); SODIUM SERUM 139 mmol/L (136-145); UREA NITROGEN, BLOOD 18 mg/dL (7-18)
[2020-04-11 20:19] LABS: B-TYPE NATRIURETIC PEPTIDE 200 PG/ML (0-125)
[2020-04-11 20:26] LABS: BASOPHILS % (AUTO) 0.6 % (0.0-2.0); EOSINOPHILS % (AUTO) 1.8 % (0.0-6.0); HEMATOCRIT 36 % (33-45); HEMOGLOBIN 12.1 g/dL (11.5-14.8); LYMPHOCYTES # (AUTO) 1.1 /CMM (0.8-4.8); LYMPHOCYTES % (AUTO) 23.8 % (20.0-44.0); MEAN CORPUSCULAR HGB CONC 33 g/dl (31.0-36.0); MEAN CORPUSCULAR VOLUME 88 fL (82-100); MONOCYTES # (AUTO) 0.4 /CMM (0.1-1.30); MONOCYTES % (AUTO) 7.9 % (2.0-12.0); NEUTROPHILS % (AUTO) 65.9 % (43.0-81.0); PLATELET COUNT (AUTO) 156 /CMM (150-450); RED BLOOD CELL COUNT(AUTO) 4.13 MIL/uL (4.0-5.2); WHITE BLOOD COUNT (AUTO) 4.5 K/uL (4.3-11.0)
--- NOTE | 2020-04-11 21:29 | NUR ---
PT IS MEDICALLY STABLE FOR D/C. IV removed. Catheter intact and site benign. Pressure and 4x4 applied to site. No bleeding noted.Patient discharged to home in stable condition. Written and verbal after care instructions given. Patient verbalizes understanding of instruction.
[2020-04-11] MEDS ORDERED: LIDOCAINE 1%-EPI 1:100,000 50 ML VIAL IJ ONE (21:30)
[2020-04-11 21:38] VITALS: BP 115/59
== END 2020-04-11 21:39 | disposition home or self-care (01) ==
LOC: ER 18:29
DX: R06.02 Shortness of breath (principal); Z20.828 Contact with and (suspected) exposure to other viral communicable diseases; K21.9 Gastro-esophageal reflux disease without esophagitis; E78.5 Hyperlipidemia, unspecified; E11.9 Type 2 diabetes mellitus without complications; Z79.84 Long term (current) use of oral hypoglycemic drugs; I11.9 Hypertensive heart disease without heart failure; F41.9 Anxiety disorder, unspecified; E03.9 Hypothyroidism, unspecified; K74.60 Unspecified cirrhosis of liver; Z79.890 Hormone replacement therapy; R94.31 Abnormal electrocardiogram [ECG] [EKG]; I44.0 Atrioventricular block, first degree
CPT/HCPCS: 36415; 71045; 80048; 83880; 84484; 85025; 93005; 99285; J3490; C9803; U0003